=== PATIENT | male | born 1940 | race Caucasian/White ===

== ENCOUNTER → 2016-07-12 | Outpatient (CLI) | payer MEDICARE ==
[2016-06-15 12:00] VITALS: BP 144/79
[~2016-07-12] MED LIST: ASPI81TA2 PO; ATOR40TA PO; BENZ100C PO; CLOP75TA PO; DOCO1CAP2 PO; FERR-26 PO; GABA-586 PO; GABA600T PO; INSU100I11 SQ; INSU100V8 SQ; LEVO125T PO; LISI20TA PO; METF500T4 PO; SITA100T PO; VIT1CAPS11 PO
--- NOTE | 2016-07-12 12:48 | KCIC ---
PROCEDURE Two-view chest HISTORY Heart blockage, post pacemaker COMPARISON June 14, 2016 FINDINGS Two views of the chest are submitted. There is again dual lead left electronic cardiac device. More distal lead again terminates closer to the ventricular apex and similar in location. However there is now coil of the distal aspect of the proximal lead, tip of the lead in the area of the distal aspect of superior vena cava. There is atherosclerotic calcification near aortic arch. There is decreased interstitial opacity. There is no dependent pleural fluid or pneumothorax. There are small fairly opaque nodular opacities of the right farzaneh thorax as seen previously likely due to sequela of old granulomatous disease. IMPRESSION 1. There is again dual lead left electronic cardiac device although the proximal lead more retracted and now with a coil distally, tip in the region of the distal aspect of superior vena cava. Electronically signed by: Soto Dan MD (Jul 12, 2016 12:46:40)
== END | disposition home or self-care (01) ==
LOC: KCIC 11:00
PROVIDERS: ATTEND Internal Medicine Cardiovascular Disease
DX: I44.2 Atrioventricular block, complete (principal)
CPT/HCPCS: 71020

== ENCOUNTER → 2016-10-17 | Outpatient (CLI) | payer MEDICARE ==
[2016-06-15 12:00] VITALS: BP 144/79
[~2016-10-17] MED LIST changes: +IOHEXOL 240 MG/ML 50ML VIAL. PO ONE; +IOHEXOL 300 MG/ML 100ML VIAL. IV ONE
--- NOTE | 2016-10-17 15:44 | KCIC ---
PROCEDURE CT abdomen and pelvis with and without contrast. HISTORY Left lower quadrant and left flank pain for 1 week. TECHNIQUE Axial images and coronal and sagittal re-formatted images are provided. Oral contrast and 100 milliliters of intravenous Omnipaque 300 was administered without complication. One or more of the following individualized dose reduction techniques were utilized for this exam: 1. Automated exposure control. 2. Adjustment of the mA and/or kV according to patient's size. 3. Use of iterative reconstruction technique. COMPARISON December 10, 2007. FINDINGS There is atelectasis in the lung bases. There are calcified granulomas. There is no pleural effusion. Heart is not enlarged. Pacemaker leads are noted. There is fatty infiltration of the liver. Gallbladder is unremarkable. Benign calcification is noted in the spleen. Mild perisplenic stranding and fluid is noted extending into the left paracolic gutter. This stranding extends along the tail of the pancreas as well. The pancreas homogeneously enhances. There is no adrenal mass. Kidneys are symmetrically perfused. There is atheromatous disease in the abdominal aorta without aneurysm. Right common iliac artery stent is noted. Questionable mural thickening in the distal esophagus could be secondary to incomplete distention. There is no small bowel obstruction or mural thickening. There are diverticula in the colon including descending and sigmoid colon. There is no definite mural thickening. Again, stranding noted in the left upper quadrant extends along a portion of the proximal descending colon. Normal appendix is noted. There is no organized fluid collection. There is no free air. Bladder is unremarkable. Prostate is not enlarged. There are degenerative changes in the spine. IMPRESSION There is inflammatory stranding noted which is in contact with the tail of the pancreas, the spleen, and the descending colon. Etiology of this stranding is not clear. A pancreatitis involving the tail is a possibility, correlate with amylase and lipase. Correlate with any concern for diverticulitis or colitis, there are diverticula in the colon although none immediately adjacent to the area of greatest stranding. Electronically signed by: Mykel Alofnso MD (Oct 17, 2016 15:42:55)
== END | disposition home or self-care (01) ==
LOC: KCIC CT 12:26
PROVIDERS: ATTEND Family Medicine
DX: R10.32 Left lower quadrant pain (principal); R10.2 Pelvic and perineal pain
CPT/HCPCS: 74178; 82565; Q9966; Q9967

== ENCOUNTER 2016-10-18 15:41 | Emergency (ER) | payer MEDICARE ==
[~2016-10-18] VITALS: Ht 188 cm; Wt 105.2 kg
[~2016-10-18 15:41] MED LIST changes: -IOHEXOL 240 MG/ML 50ML VIAL. PO ONE; -IOHEXOL 300 MG/ML 100ML VIAL. IV ONE
[2016-10-18] MEDS ORDERED: IV NORMAL SALINE 1000ML BAG 1,000 ML IV SCH (16:32)
--- NOTE | 2016-10-18 16:43 | PHYS DOC ---
Past Medical History Past Medical History: Diabetes-Type II, SD Additional Past Medical Histor: cardiac stent, bradycardia Past Surgical History: Other Additional Past Surgical Histo: cardiac stents, bilat leg stents, pacemaker with revision Alcohol Use: None Drug Use: None Adult General Chief Complaint Chief Complaint: OTHER COMPLAINTS HPI HPI Patient is a 75 year old male who presents with abdominal pain. Patient reports last Friday night he became ill with N/V/D. This occurred again on Friday night. No vomiting or diarrhea since then, but since Friday he has been having LUQ/L flank/LLQ pain that he describes as a sharp pain without clear inciting or mitigating factors. He was seen by Dr. Cardoso for same yesterday, and underwent CT A/P (results as below). He was instructed to come into the ED for evaluation. In addition, patient reports for the past 4-5 weeks he has had productive cough. No chest pain, no SOB, no fever. He went to urgent care on Friday and was given rx for nausea meds and amoxicillin. He has not taken any meds for nausea or pain today. Review of Systems Review of Systems Constitutional: Denies fever or chills Eyes: Denies change in visual acuity or eye pain HENT: Denies nasal congestion or sore throat Respiratory: Productive cough. Denies shortness of breath Cardiovascular: Denies chest pain GI: L flank/LUQ/LLQ abdominal pain. N/V/D this past weekend, none since : Denies dysuria or hematuria Musculoskeletal: Denies extremity pain Integument: Denies rash or skin lesions Neurologic: Denies headache, focal weakness or sensory changes Current Medications Current Medications Current Medications Medications (Trade) Dose Ordered Sig/Walt Start Time Stop Time Status Last Admin Dose Admin Sodium Chloride (Iv Sodium Chloride 0.9% 1000ml Bag) 1,000 ml @ 500 mls/hr Q2H 10/18/16 16:32 10/18/16 18:31 DC 10/18/16 16:32 500 MLS/HR Allergies Allergies Allergies Coded Allergies Type Severity Reaction Last Updated Verified diazepam Adverse Reaction Intermediate ANGER 06/13/16 Yes Physical Exam Physical Exam Constitutional: Well developed, well nourished, no acute distress, non-toxic appearance HENT: Normocephalic, atraumatic, bilateral external ears normal Eyes: EOMI, conjunctiva normal, no discharge Neck: Normal range of motion, no stridor Cardiovascular: Heart rate normal, regular rhythm, no murmur Lungs & Thorax: Bilateral breath sounds clear to auscultation Abdomen: Bowel sounds normal, soft, non-distended, mild epigastric TTP without guarding or rebound Skin: Warm, dry, no erythema, no rash Back: Mild L CVA tenderness Extremities: No obvious deformity, no edema Neurologic: Alert and oriented X 3, no gross deficits noted Psychologic: Affect normal, judgement normal, mood normal Current Patient Data Vital Signs Vital Signs Date Time Temp Pulse Resp B/P Pulse Ox O2 Delivery O2 Flow Rate FiO2 10/18/16 18:30 88 18 127/57 99 Room Air 10/18/16 15:53 97.5 97.5 Lab Values Laboratory Tests Test 10/18/16 16:30 10/18/16 16:40 Urine Collection Type Unknown Urine Color Yellow Urine Clarity Clear Urine pH 5.5 Urine Specific Whitney 1.025 Urine Protein Negativemg/dL (NEG-TRACE) Urine Glucose (UA) Negativemg/dL (NEG) Urine Ketones (Stick) Negativemg/dL (NEG) Urine Blood Negative (NEG) Urine Nitrite Negative (NEG) Urine Bilirubin Negative (NEG) Urine Urobilinogen Dipstick 1.0mg/dL (0.2 mg/dL) Urine Leukocyte Esterase Negative (NEG) Urine RBC 0/HPF (0-2) Urine WBC 0/HPF (0-4) Urine Squamous Epithelial Cells Few/LPF Urine Bacteria 0/HPF (0-FEW) Urine Mucus Marked/LPF White Blood Count 5.5x10^3/uL (4.0-11.0) Red Blood Count 3.43x10^6/uL (4.30-5.70) L Hemoglobin 10.2g/dL (13.0-17.5) L Hematocrit 29.4% (39.0-53.0) L Mean Corpuscular Volume 86fL (79-100) Mean Corpuscular Hemoglobin 30pg (25-35) Mean Corpuscular Hemoglobin Concent 35g/dL (31-37) Red Cell Distribution Width 16.5% (11.5-14.5) H Platelet Count 98x10^3/uL (140-400) L Neutrophils (%) (Auto) 55% (31-73) Lymphocytes (%) (Auto) 28% (24-48) Monocytes (%) (Auto) 10% (0-9) H Eosinophils (%) (Auto) 7% (0-3) H Basophils (%) (Auto) 1% (0-3) Neutrophils # (Auto) 3.0x10^3uL (1.8-7.7) Lymphocytes # (Auto) 1.6x10^3/uL (1.0-4.8) Monocytes # (Auto) 0.5x10^3/uL (0.0-1.1) Eosinophils # (Auto) 0.4x10^3/uL (0.0-0.7) Basophils # (Auto) 0.0x10^3/uL (0.0-0.2) Platelet Estimate Decreased (ADEQUATE) Large Platelets Present Sodium Level 140mmol/L (136-145) Potassium Level 4.1mmol/L (3.5-5.1) Chloride Level 102mmol/L (98-107) Carbon Dioxide Level 30mmol/L (21-32) Anion Gap 8 (6-14) Blood Urea Nitrogen 32mg/dL (8-26) H Creatinine 1.4mg/dL (0.7-1.3) H Estimated GFR (Cockcroft-Gault) 49.5 BUN/Creatinine Ratio 23 (6-20) H Glucose Level 154mg/dL (70-99) H Calcium Level 9.1mg/dL (8.5-10.1) Total Bilirubin 0.5mg/dL (0.2-1.0) Aspartate Amino Transferase (AST) 47U/L (15-37) H Alanine Aminotransferase (ALT) 41U/L (16-63) Alkaline Phosphatase 85U/L (46-116) Total Protein 7.5g/dL (6.4-8.2) Albumin 3.0g/dL (3.4-5.0) L Albumin/Globulin Ratio 0.7 (1.0-1.7) L Amylase Level 86U/L (25-115) Lipase 235U/L (73-393) Laboratory Tests 10/18/16 16:40 Laboratory Tests 10/18/16 16:40 EKG EKG [] Radiology/Procedures Radiology/Procedures CXR: IMPRESSION: No acute cardiopulmonary abnormality is detected. CT A/P (from 10/17/16): IMPRESSION There is inflammatory stranding noted which is in contact with the tail of the pancreas, the spleen, and the descending colon. Etiology of this stranding is not clear. A pancreatitis involving the tail is a possibility, correlate with amylase and lipase. Correlate with any concern for diverticulitis or colitis, there are diverticula in the colon although none immediately adjacent to the area of greatest stranding. Course & Med Decision Making Course & Med Decision Making Pertinent Labs and Imaging studies reviewed. (See chart for details) Patient is 75 year old male who presents with nonspecific CT findings. Labs ordered for further evaluation. CXR given c/o cough for past several weeks. IV fluid bolus ordered. CXR results as above. Pancreatitic enzymes wnl; no leukocytosis either. Anemia, renal function at baseline. Discussed results with Dr. Macias (personal care assistant for Dr. Cardoso); ok to send patient home with outpatient follow up. Discussed with patient, who is agreeable with plan. Discharged home with instructions for follow up and return precautions. Dragon Disclaimer Dragon Disclaimer This electronic medical record was generated, in whole or in part, using a voice recognition dictation system. Departure Departure Impression: Primary Impression: Abdominal pain Disposition: HOME, SELF-CARE Condition: STABLE Referrals: ANAHI CARDOSO MD (PCP) ELÍAS MITTAL MD Patient Instructions: Abdominal Pain (Nonspecific) Additional Instructions: Thank you for allowing us to provide care today in the Emergency Department. Schedule a follow up appointment with your primary care doctor and with a GI doctor using the provided contact information. Return promptly to the Emergency Department if you develop any new or concerning symptoms. BARBER MCGOWAN MD Oct 18, 2016 16:43
[2016-10-18 16:59] LABS: BASO % 1 % (0-3); EOS % 7 % (0-3); HEMATOCRIT 29.4 % (39.0-53.0); HEMOGLOBIN 10.2 g/dL (13.0-17.5); LYMPH # 1.6 x10^3/uL (1.0-4.8); LYMPH % 28 % (24-48); MEAN CORPUSCULAR HEMOGLOBIN 30 pg (25-35); MEAN CORPUSCULAR HGB CONC 35 g/dL (31-37); MEAN CORPUSCULAR VOLUME 86 fL (79-100); MONO % 10 % (0-9); NEUT % 55 % (31-73); PLATELET COUNT 98 x10^3/uL (140-400); RED BLOOD COUNT 3.43 x10^6/uL (4.30-5.70); RED CELL DISTRIBUTION WIDTH 16.5 % (11.5-14.5); WHITE BLOOD COUNT 5.5 x10^3/uL (4.0-11.0)
[2016-10-18 17:03] LABS: BILIRUBIN,URINE NEGATIVE (NEG); GLUCOSE,URINE NEGATIVE (NEG); NITRITE,URINE NEGATIVE (NEG); PH,URINE 5.5; PROTEIN,URINE NEGATIVE (NEG-TRACE)
[2016-10-18 17:09] LABS: BACTERIA,URINE 0 /HPF (0-FEW); RBC,URINE 0 /HPF (0-2); SQUAMOUS EPITHELIAL CELL,UR FEW /LPF; WBC,URINE 0 /HPF (0-4)
[2016-10-18 17:13] LABS: CALCIUM 9.1 mg/dL (8.5-10.1); CREATININE 1.4 mg/dL (0.7-1.3); GFR 49.5; POTASSIUM 4.1 mmol/L (3.5-5.1)
--- NOTE | 2016-10-18 17:13 | RAD ---
Chest, 2 views, 10/18/2016: History: Cough Comparison is made to a study from 07/12/2016. A left-sided transvenous pacemaker remains in place with 2 leads extending into the right heart. The heart size and pulmonary vascularity are normal. A coronary artery stent is projected over the left side of the heart. There is calcific plaquing of the aorta. Numerous calcified mediastinal lymph nodes are present. There are granulomatous calcifications in the right lung. No acute infiltrates are seen. There is no evidence of pleural fluid. Mild spurring is present in the spine. IMPRESSION: No acute cardiopulmonary abnormality is detected.
[2016-10-18 17:19] LABS: ALBUMIN/GLOBULIN RATIO 0.7 (1.0-1.7); PLT ESTIMATE DECREASED (ADEQUATE); TOTAL BILIRUBIN 0.5 mg/dL (0.2-1.0); TOTAL PROTEIN 7.5 g/dL (6.4-8.2)
[2016-10-18 18:30] VITALS: BP 127/57
== END 2016-10-18 18:55 | disposition home or self-care (01) ==
LOC: ER 15:41
DX: R10.13 Epigastric pain (principal); R10.32 Left lower quadrant pain; R10.12 Left upper quadrant pain; R11.2 Nausea with vomiting, unspecified; R19.7 Diarrhea, unspecified; R05 Cough; E11.9 Type 2 diabetes mellitus without complications; I25.2 Old myocardial infarction; Z95.0 Presence of cardiac pacemaker; Z95.5 Presence of coronary angioplasty implant and graft; Z88.8 Allergy status to other drugs, medicaments and biological substances
CPT/HCPCS: 36415; 71020; 80053; 81001; 82150; 83690; 85007; 85027; 96360; 96361; 99285; J7030

== ENCOUNTER → 2016-11-13 | Outpatient (CLI) | payer MEDICARE ==
[2016-10-18 18:30] VITALS: BP 127/57
--- NOTE | 2016-11-13 16:49 | RAD ---
Bilateral lower chest may arterial ultrasound, 11/13/2016: History: Claudication Duplex evaluation of the major arteries in both lower extremities was performed including grayscale, color-flow and spectral Doppler analysis. There is moderate scattered atherosclerotic plaquing bilaterally. The right common femoral artery demonstrates an abnormal monophasic Doppler waveform suggesting iliac inflow disease. The peak systolic velocity at the common femoral artery level is 236 cm/s suggesting moderate stenosis. The peak systolic velocity in the proximal right superficial femoral artery is 44 cm/s. In the mid right superficial femoral artery there is a velocity acceleration up to 236 cm/s. This suggests additional moderate focal stenosis at this level. The superficial femoral artery in the lower thigh appears occluded. There is reconstitution of the distal right popliteal artery which demonstrates a monophasic Doppler waveform. The peak systolic velocity at this level is 181 cm/s suggesting additional luminal narrowing. Patent posterior tibial and anterior tibial arteries are present in the right lower leg demonstrating dampened monophasic Doppler waveforms. The right peroneal artery could not be visualized. The right dorsalis pedis artery is patent with a similar weak monophasic Doppler waveform. On the left, the common femoral Doppler waveform is triphasic. It demonstrates a peak systolic velocity of 273 cm/s. This suggests moderate stenosis at that level. The left proximal superficial femoral arteries demonstrate moderate scattered plaques with monophasic Doppler waveforms. There is occlusion of the distal left superficial femoral artery. There is reconstitution of the popliteal artery via collateral flow. The popliteal artery demonstrates a dampened monophasic Doppler waveform. Patent posterior tibial and anterior tibial arteries are present in the left lower leg demonstrating monophasic Doppler waveforms. The left peroneal artery could not be visualized. The left dorsalis pedis artery is patent with weak monophasic Doppler waveform. IMPRESSION: 1. Moderate generalized atherosclerotic plaquing. 2. 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 3. Occlusions of the distal superficial femoral arteries bilaterally with reconstitution of the popliteal arteries via collateral circulation. 4. Moderate focal stenosis of the distal right popliteal artery. 5. 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 6. Patent posterior tibial, anterior tibial and dorsalis pedis arteries bilaterally demonstrating dampened monophasic blood flow.
== END | disposition home or self-care (01) ==
LOC: US 12:53
PROVIDERS: ATTEND Family Medicine
DX: I73.9 Peripheral vascular disease, unspecified (principal); M79.604 Pain in right leg; I70.208 Unspecified atherosclerosis of native arteries of extremities, other extremity; I65.23 Occlusion and stenosis of bilateral carotid arteries
CPT/HCPCS: 93925

== ENCOUNTER → 2017-11-06 | Outpatient (CLI) | payer MEDICARE | END | disposition home or self-care (01) | LOC: RAD 12:42 | DX: J44.9 Chronic obstructive pulmonary disease, unspecified (principal); I10 Essential (primary) hypertension; E11.9 Type 2 diabetes mellitus without complications; E03.9 Hypothyroidism, unspecified; Z95.0 Presence of cardiac pacemaker; Z79.4 Long term (current) use of insulin | CPT/HCPCS: 71046 ==

== ENCOUNTER 2017-11-10 09:43 | Day surgery (SDC) | payer MEDICARE ==
[~2017-11-10 09:43] MED LIST changes: -ASPI81TA2 PO; -ATOR40TA PO; -BENZ100C PO; -CLOP75TA PO; -DOCO1CAP2 PO; -FERR-26 PO; -GABA-586 PO; -GABA600T PO; -INSU100I11 SQ; -INSU100V8 SQ; +IV RINGERS,LACTATED 1000ML 1,000 ML IV; -LEVO125T PO; +LIDOCAINE 1% PF 2 ML VIAL. ID; -LISI20TA PO; -METF500T4 PO; +MORPHINE SULFATE 4 MG/ML DISP.SYRIN. IV; +ONDANSETRON PF 4 MG/2 ML VIAL. IV; +PROCHLORPERAZINE 10 MG/2 ML VIAL. IV; -SITA100T PO; -VIT1CAPS11 PO; +fentaNYL PF VIAL 100 MCG/2 ML VIAL IV
[2017-11-10] MEDS ORDERED: PROPOFOL 20 ML IV (10:37)
[2017-11-10] MEDS ORDERED: LIDOCAINE 2% PF Vial for OR 5 ML VIAL. (10:37)
[2017-11-10 11:05] LABS: INR 1.2 (0.8-1.1); PARTIAL THROMBOPLASTIN TIME 31 SEC (24-38); PROTHROMBIN TIME PATIENT 14.5 SEC (11.7-14.0)
[2017-11-10] MEDS ORDERED: BUPIVACAINE-EPI 0.25%-1:200000 50 ML VIAL. (11:18)
[2017-11-10] MEDS ORDERED: LIDOCAINE 2%/EPI 1:100,000 20 ML VIAL. (11:18)
[2017-11-10] MEDS: IV RINGERS,LACTATED 1000ML 1,000 ML IV (11:19)
[2017-11-10 11:29] LABS: POC GLUCOSE 80 mg/dL (70-99)
[2017-11-10] MEDS: LIDOCAINE 1% PF 30 ML VIAL. (12:43)
== END 2017-11-10 14:20 | disposition home or self-care (01) ==
LOC: SURG 09:43
DX: L72.0 Epidermal cyst (principal); E66.9 Obesity, unspecified; Z68.30 Body mass index [BMI] 30.0-30.9, adult; I25.10 Atherosclerotic heart disease of native coronary artery without angina pectoris; E11.9 Type 2 diabetes mellitus without complications; I10 Essential (primary) hypertension; E03.9 Hypothyroidism, unspecified; E78.00 Pure hypercholesterolemia, unspecified; K21.9 Gastro-esophageal reflux disease without esophagitis; M19.90 Unspecified osteoarthritis, unspecified site; I48.91 Unspecified atrial fibrillation; Z95.0 Presence of cardiac pacemaker; Z95.5 Presence of coronary angioplasty implant and graft; Z98.890 Other specified postprocedural states; Z80.0 Family history of malignant neoplasm of digestive organs; Z83.3 Family history of diabetes mellitus; Z82.49 Family history of ischemic heart disease and other diseases of the circulatory system; Z87.891 Personal history of nicotine dependence; Z72.89 Other problems related to lifestyle; Z79.84 Long term (current) use of oral hypoglycemic drugs; Z79.82 Long term (current) use of aspirin; Z79.899 Other long term (current) drug therapy; Z88.8 Allergy status to other drugs, medicaments and biological substances
CPT/HCPCS: 11404; 36415; 82962; 85610; 85730; 88304; J0690; J2704; J3490

== ENCOUNTER → 2018-09-09 | Outpatient (CLI) | payer MEDICARE ==
[2017-11-10 13:45] VITALS: BP 105/60
[~2018-09-09] MED LIST changes: +ASPI-630 PO; +ATOR40TA PO; +BENZ100C PO; +CARV12.5 PO; +CHOL100013 PO; +CILO100T PO; +CLOP75TA PO; +DOCO1CAP2 PO; +FERR325T14 PO; +FURO40TA4 PO; +GABA300C18 PO; +GABA600T PO; +INSU100I11 SQ; +INSU100V8 SQ; +INSU300I SQ; -IV RINGERS,LACTATED 1000ML 1,000 ML IV; +LACT20SO PO; +LEVO125T PO; -LIDOCAINE 1% PF 2 ML VIAL. ID; +LISI20TA PO; +MAGN400C PO; +METF500T16 PO; -MORPHINE SULFATE 4 MG/ML DISP.SYRIN. IV; +NITR0.4T22 SL; +OCUVITE SOFTGE1 EACH PO; -ONDANSETRON PF 4 MG/2 ML VIAL. IV; +PANT20TA2 PO; -PROCHLORPERAZINE 10 MG/2 ML VIAL. IV; +SITA100T PO; -fentaNYL PF VIAL 100 MCG/2 ML VIAL IV
--- NOTE | 2018-09-09 15:11 | KCIC ---
EXAM: Left lower extremity venous Doppler sonogram. HISTORY: Pain and swelling. TECHNIQUE: Bhakta scale and color Doppler sonographic evaluation of the left lower extremity veins with spectral waveform analysis was performed. FINDINGS: There is normal color flow, normal compressibility and there are normal spectral waveforms in the common femoral, superficial femoral, popliteal, posterior tibial and greater saphenous veins. The calf veins are not well seen due to soft tissue edema. There is a prominent left middle lymph node measuring 3.8 x 2.5 x 1.1 cm. This maintains a benign fatty hilum and may be physiologic or reactive in etiology. IMPRESSION: No Doppler evidence of lower extremity deep venous thrombosis. Electronically signed by: Dianne Anne MD (09/09/2018 3:08 PM) [id number]
== END | disposition home or self-care (01) ==
LOC: KCIC US 14:01
PROVIDERS: ATTEND Nurse Practitioner Gerontology
DX: M79.662 Pain in left lower leg (principal); R60.0 Localized edema
CPT/HCPCS: 93971